=== PATIENT | male | born 1980 | race Caucasian/White ===

== ENCOUNTER 2016-12-09 19:56 | Emergency (ER) | payer BC ==
[2016-12-09] MEDS ORDERED: Tetan/Diph/Pertus SYR(Tdap)* 0.5 ML SYR(BOOSTRIX) use SYR IM ONE (20:34)
[2016-12-09] MEDS ORDERED: Acetaminophen TAB* 325 MG PO ONE (20:34)
--- NOTE | 2016-12-09 21:30 | ED ---
Upper Extremity Pain - HPI Summary HPI Summary: Rt hand dominant pt here w/ Lt thumb lac 20 mins prior to arrival. Completely sliced off pad of thumb w/ porcelain beach glass. FROM thumb. Bleeding stopped w / pressure but started again w/ dressing removal here. Imms are not UTD - will receive tetanus today. Pain 8/10. Drove himself - will order non-narcotic pain med. 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 - History of Current Complaint Chief Complaint: EDLacSutureRecheck Stated Complaint: THUMB LAC Time Seen by Provider: 12/09/16 20:34 Hx Obtained From: Patient - Allergies/Home Medications Allergies/Adverse Reactions: Allergies Allergy/AdvReac Type Severity Reaction Status Date / Time No Known Allergies Allergy Verified 03/27/13 09:26 PMH/Surg Hx/FS Hx/Imm Hx Previously Healthy: Yes Endocrine/Hematology History: Denies: Hx Anticoagulant Therapy, Hx Blood Disorders, Hx Diabetes Infectious Disease History: Unable to Obtain/Confirm Infectious Disease History: Denies: Traveled Outside the in Last 30 Days - Social History Occupation: Employed Full-time Lives: With Family Hx Substance Use: No Substance Use Type: Reports: None Review of Systems Musculoskeletal: Negative Skin: Other - see HPI Neurological: Negative Negative: Weakness, Paresthesia, Numbness Psychological: Normal All Other Systems Reviewed And Are Negative: Yes Physical Exam Triage Information Reviewed: Yes Vital Signs On Initial Exam: Initial Vitals Temp Pulse Resp BP Pulse Ox 98.8 F 88 16 155/106 96 12/09/16 20:00 12/09/16 20:00 12/09/16 20:00 12/09/16 20:00 12/09/16 20:00 Vital Signs Reviewed: Yes Appearance: Positive: Well-Appearing, Well-Nourished, Pain Distress - mild to moderate w/ dressing removed Skin: Positive: Warm - avulsed skin over palmar surface of distal Lt thumb pad Head/Face: Positive: Normal Head/Face Inspection Eyes: Positive: EOMI ENT: Positive: Hearing grossly normal Respiratory/Lung Sounds: Positive: Breath Sounds Present Cardiovascular: Positive: Pulses are Symmetrical in both Upper and Lower Extremities Musculoskeletal: Positive: Normal, Strength/ROM Intact Neurological: Positive: Normal, Sensory/Motor Intact, Alert, Oriented to Person Place, Time Psychiatric: Positive: Normal Procedures - Laceration/Wound Repair 1 Location: upper extremity - Lt thumb Description: Irregular - avulsion Length, Depth and Shape: 10-12 mm in diameter - no bone exposure Irrigated w/ Saline (ccs): 250 - sterile saline Laceration/Wound Explored: clean Layer Closure?: No Sterile Dressing Applied?: Yes - xeroform + sterile gauze + coban pressure wrap Diagnostics - Vital Signs Vital Signs Temp Pulse Resp BP Pulse Ox 12/09/16 20:00 98.8 F 88 16 155/106 96 - Laboratory Lab Statement: Any lab studies that have been ordered have been reviewed, and results considered in the medical decision making process. Course/Dx - Diagnoses Provider Diagnoses: Avulsion of skin of left thumb Discharge - Discharge Plan Condition: Stable Disposition: HOME Patient Education Materials: Skin Avulsion (ED) Referrals: No Primary Care Phys,NOPCP [Primary Care Provider] - [facility] [Outside] Additional Instructions: Keep dressing clean, dry and intact for 48 hours. After this time, you may remove dressing to gently wash with soap and water - rinse well and pat dry with clean cloth then reapply triple antibiotic ointment plus gauze plus coban ( biege stretch wrap provided today). Rest, ice, elevate to reduce pain/swelling You may take ibuprofen alternating with acetaminophen as needed for pain. Follow-up with PCP this coming week for wound check and return to work note when ready. Call Sunday to schedule appointment. *If you develop fever, chills, redness, swelling, streaking, purulent drainage, return to ED
[2016-12-09 21:50] VITALS: BP 150/96
== END 2016-12-09 21:50 | disposition home or self-care (01) ==
LOC: ED 19:56
DX: S61.012A Laceration without foreign body of left thumb without damage to nail, initial encounter (principal); W25.XXXA Contact with sharp glass, initial encounter; Y93.9 Activity, unspecified; Y92.9 Unspecified place or not applicable
CPT/HCPCS: 90715; 99282; A9270-GY